=== PATIENT | male | born 1980 ===

== ENCOUNTER 2016-10-05 21:01 | Emergency (ER) | payer OTHER ==
[2016-10-05 21:11] VITALS: TEMP 99.2; O2SAT 100
--- NOTE | 2016-10-05 21:22 | ED PDOC ---
Arrival/HPI - General Chief Complaint: Medical Clearance Time Seen by Provider: 10/05/16 21:10 Historian: Patient - History of Present Illness Narrative History of Present Illness (Text): 10/05/16 21:20 Fabiano Harris is a 36 year old male, whose past medical history includes diabetes, who presents to the Emergency department complaining of right testicle discomfort after he was struck by tennis ball. Patient states he had some swelling to the testicular area which has since gone down after taking a cold shower at home. Patient still has some residual discomfort to the right testicle but much less than previously. Patient denies any chest pain, shortness of breath, nausea, vomiting, diarrhea, urinary symptoms, back pain, neck pain headache, dizziness, or any other complaints. Time/Duration: Other (today) Symptom Course: Improving Activities at Onset: Light (Tennis) Context: Standing Past Medical History - Provider Review Nursing Documentation Reviewed: Yes - Infectious Disease Hx of Infectious Diseases: None - Endocrine/Metabolic Hx Diabetes Mellitus Type 2: Yes - Psychiatric Hx Substance Use: No - Anesthesia Hx Anesthesia: No Hx Anesthesia Reactions: No Hx Malignant Hyperthermia: No Family/Social History - Physician Review Nursing Documentation Reviewed: Yes Family/Social History: No Known Family HX Smoking Status: Never Smoked Hx Alcohol Use: No Hx Substance Use: No Allergies/Home Meds Allergies/Adverse Reactions: Allergies No Known Allergies Allergy (Verified 10/05/16 21:11) Home Medications: Home Meds Medication Instructions Recorded Confirmed Exenatide Microspheres [Bydureon 2 mg SC QWK 10/05/16 10/05/16 Pen] Insulin Detemir [Levemir] 25 unit SQ HS 10/05/16 10/05/16 Lisinopril [Prinivil] 5 mg PO DAILY 10/05/16 10/05/16 MetFORMIN [glucOPHAGE] 1,000 mg PO BID 10/05/16 10/05/16 Review of Systems - Physician Review All systems were reviewed & negative as marked: Yes - Review of Systems Constitutional: Normal. absent: Fevers Eyes: Normal ENT: Normal Respiratory: Normal. absent: SOB, Cough Cardiovascular: Normal. absent: Chest Pain Gastrointestinal: Normal. absent: Abdominal Pain, Diarrhea, Nausea, Vomiting Genitourinary Male: Other (+right testicle discomfort). absent: Dysuria, Frequency, Hematuria, Urinary Output Changes Musculoskeletal: Normal. absent: Back Pain, Neck Pain Skin: Normal. absent: Rash Neurological: Normal. absent: Headache, Dizziness Endocrine: Normal Hemo/Lymphatic: Normal Psychiatric: Normal Physical Exam Vital Signs Reviewed: Yes Vital Signs Temp Pulse Resp BP Pulse Ox 10/05/16 23:13 82 18 125/85 100 10/05/16 21:04 99.2 F 94 H 20 143/93 H 100 Temperature: Afebrile Blood Pressure: Normal Pulse: Regular Respiratory Rate: Normal Appearance: Positive for: Well-Appearing, Non-Toxic, Comfortable Pain Distress: None Mental Status: Positive for: Alert and Oriented X 3 - Systems Exam Head: Present: Atraumatic, Normocephalic Pupils: Present: PERRL Extroacular Muscles: Present: EOMI Conjunctiva: Present: Normal Mouth: Present: Moist Mucous Membranes Neck: Present: Normal Range of Motion Respiratory/Chest: Present: Clear to Auscultation, Good Air Exchange. No: Respiratory Distress, Accessory Muscle Use Cardiovascular: Present: Regular Rate and Rhythm, Normal S1, S2. No: Murmurs Abdomen: Present: Normal Bowel Sounds. No: Tenderness, Distention, Peritoneal Signs Genitourinary Male: Present: Normal External Genitalia, Testicle Tenderness ( Mild palpable tenderness to right testicle). No: Testicle Swelling (No swelling to right/left testicle) Upper Extremity: Present: Normal Inspection. No: Cyanosis, Edema Lower Extremity: Present: Normal Inspection. No: Edema Neurological: Present: GCS=15, CN II-XII Intact, Speech Normal Skin: Present: Warm, Dry, Normal Color. No: Rashes Psychiatric: Present: Alert, Oriented x 3, Normal Insight, Normal Concentration Medical Decision Making ED Course and Treatment: 10/05/16 21:20 Impression: 36 year old male complaining of right testicular discomfort. Differential Diagnosis include but are not limited to: Plan: -- US Testes -- Reassess and disposition Progress Notes: 10/05/16 23:21 Reviewed sono, US Testes shows: Acute trauma suspected involving the right testes. 2 heterogeneous hypoechoic foci suggesting likely intratesticular hematoma formation. Consider follow until resolution to exclude potential underlying neoplasm. Complex rather hydrocele likely representing hemorrhage. Epididymal hematoma is also seen in the posterior right scrotal sac, 2.1 cm. - RAD Interpretation Narrative RAD Interpretations (Text): US Testes shows: Right testicle: The right testicle measures 4.8 cm. Right testicle is heterogeneous. Right testicle demonstrates hypoechoic structure measuring 1.7 x 1.2 x 1.6 cm, an additional hypoechoic structure 0.8 x 0.5 x 0.5 cm. No torsion. Left testicle: Left testicle measures 5 cm. Homogeneous. No torsion. Epididymides: Right epididymis is 5 mm. A hematoma involving the mid posterior right epididymis. See below. Scrotum: Moderate right-sided hydrocele is present. This appears complex and septated. In the posterior right scrotal sac, an epididymal hematoma is present 2.1 x 1.5 x 1.7 cm. IMPRESSION: Acute trauma suspected involving the right testes. 2 heterogeneous hypoechoic foci suggesting likely intratesticular hematoma formation. Consider follow until resolution to exclude potential underlying neoplasm. Complex rather hydrocele likely representing hemorrhage. Epididymal hematoma is also seen in the posterior right scrotal sac, 2.1 cm. Radiology Orders: 10/05/16 21:34 TESTES DUPLEX COMPLETE [US] Stat Product Safety Tester: Radiologist - Scribe Statement The provider has reviewed the documentation as recorded by the Scribe Judi Connolly All medical record entries made by the Scribe were at my direction and personally dictated by me. I have reviewed the chart and agree that the record accurately reflects my personal performance of the history, physical exam, medical decision making, and the department course for this patient. I have also personally directed, reviewed, and agree with the discharge instructions and disposition. Disposition/Present on Arrival - Present on Arrival Any Indicators Present on Arrival: No History of DVT/PE: No History of Uncontrolled Diabetes: No Urinary Catheter: No History of Decub. Ulcer: No History Surgical Site Infection Following: None - Disposition Have Diagnosis and Disposition been Completed?: Yes Diagnosis: Contusion of testicle Disposition: HOME/ ROUTINE Disposition Time: 23:24 Patient Plan: Discharge Patient Problems: Current Active Problems Problem Status Onset Contusion of testicle Acute Condition: STABLE Discharge Instructions (ExitCare): Hydrocele (ED), Contusion in Adults (ED), Hematoma (ED) Additional Instructions: Use athletic supporter/advil as directed/follow up with the urologist this week .If any worsening symptoms(recurrent increased pain or swelling) return to the emergency room Referrals: Hao Mulligan MD [Staff Provider] - Follow up with primary
[2016-10-05 23:14] VITALS: BP 125/85; PULSE 82; RESP 18
--- NOTE | 2016-10-07 09:57 | US ---
HISTORY: trauma right testicle TECHNIQUE: Realtime sonography through the scrotum with color and doppler flow. COMPARISON: None Available. FINDINGS: RIGHT TESTICLE: Measures 4.8 x 2.8 x 3.3 cm. There is heterogeneous echotexture in the lower pole of the testicle with a 7 mm hyperechoic area and hypoechoic area measuring 1.7 x 1.2 x 1.6 cm. There is normal echotexture in the upper pole. RIGHT EPIDIDYMIS: Epididymal head measures 0.7 x 1.1 x 1.1 cm. There is a 5 mm hypoechoic area in the posterior epididymis. Also noted is a 2.1 x 1.5 x 1.7 cm complex predominantly hypoechoic area in the region of the posterior epididymis. LEFT TESTICLE: Measures 5.0 x 1.6 x 2.9 cm. Normal echotexture and flow. LEFT EPIDIDYMIS: Epididymal head measures 1.1 x 0.6 x 0.8 cm. Grossly unremarkable appearance with normal flow. HYDROCELE: Moderate complex right hydrocele. No left hydrocele. VARICOCELE: None. OTHER FINDINGS: None. IMPRESSION: 1. Findings are most compatible with trauma in the lower pole of the right testicle with evolving hematomas, the larger measures 1.7 cm no evidence of torsion. Follow-up is recommended to ensure complete resolution and exclude underlying neoplasm. 2. Question of posterior epididymal hematoma measuring 2.1 cm. 3. Complex right hydrocele may represent hemorrhagic fluid. A preliminary report was provided by [facility] services.
== END 2016-10-05 23:57 | disposition home or self-care (01) ==
LOC: ED 21:01
DX: S30.22XA Contusion of scrotum and testes, initial encounter (principal); W21.09XA Struck by other hit or thrown ball, initial encounter; Y93.73 Activity, racquet and hand sports; E11.9 Type 2 diabetes mellitus without complications